=== PATIENT | female | born 1960 | race Caucasian/White ===

== ENCOUNTER 2019-08-20 23:04 | Emergency (ER) | payer MEDICAID ==
[~2019-08-20] VITALS: Ht 162.6 cm; Wt 56.7 kg
[2019-08-20 23:10] VITALS: BP_SYST 148
[2019-08-21 01:30] VITALS: BP_SYST 135
== END 2019-08-21 05:04 | disposition left against medical advice (07) ==
LOC: SED 23:04
DX: M25.512 Pain in left shoulder (principal); Z88.6 Allergy status to analgesic agent
CPT/HCPCS: 73030; 99283